=== PATIENT | male | born 1980 | race African-American/Black ===

== ENCOUNTER 2016-10-28 21:09 | Emergency (ER) | payer BC ==
[2016-10-28 21:22] VITALS: BP 121/80
[2016-10-28] MEDS ORDERED: BACITRACIN OINT TOP STA (21:42)
[2016-10-28] MEDS ORDERED: HYDROcod/ACET 5/325 Prepack 6 PO STA (21:42)
[2016-10-28] MEDS ORDERED: BACITRACIN OINT TOP ONE (21:44)
[2016-10-28] MEDS ORDERED: HYDROcod/ACET 5/325 Prepack 6 PO ONE (21:44)
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
== END 2016-10-28 21:56 | disposition home or self-care (01) ==
LOC: ED 21:09
DX: T23.322A Burn of third degree of single left finger (nail) except thumb, initial encounter (principal); X15.8XXA Contact with other hot household appliances, initial encounter; Y92.009 Unspecified place in unspecified non-institutional (private) residence as the place of occurrence of the external cause
CPT/HCPCS: 64450; 99282; 99283; A9270

== ENCOUNTER 2017-04-16 09:51 | Emergency (ER) | payer BC, MEDICAID ==
[2017-04-16 10:09] VITALS: BP 120/81
--- NOTE | 2017-04-16 12:34 | ED Physician Documentation ---
PD HPI HEENT - Stated complaint Stated Complaint: TOOTH/FACE PX - Chief complaint Chief Complaint: Heent - History obtained from History obtained from: Patient - History of Present Illness Timing - onset: Yesterday (had tooth crack yesterday and is hurting today. Tried to get into dentist but no appts for couple weeks.) Timing - details: Abrupt onset, Still present Location: Tooth (left upper) Associated symptoms: No: Fever, Congestion, Rhinorrhea, Facial swelling Similar symptoms before: Has not had sx before Review of Systems Constitutional: denies: Fever, Chills Throat: reports: Dental pain / toothache. denies: Sore throat Respiratory: denies: Dyspnea, Cough PD PAST MEDICAL HISTORY - Past Medical History Past Medical History: No - Past Surgical History Past Surgical History: Yes - Present Medications Home Medications: Ambulatory Orders Medication Instructions Recorded Confirmed Clindamycin HCl [Cleocin HCl] 300 mg PO TID #15 capsule 04/16/17 HYDROcod/ACETAM 5/325 [[place] 5/325] 1 tab PO Q6H PRN #20 tablet 04/16/17 Naproxen [Naprosyn] 500 mg PO BID PRN #20 tablet 04/16/17 - Allergies Allergies/Adverse Reactions: Allergies Allergy/AdvReac Type Severity Reaction Status Date / Time No Known Drug Allergies Allergy Verified 04/16/17 10:09 - Social History Does the pt smoke?: No Smoking Status: Never smoker Does the pt drink ETOH?: No Does the pt have substance abuse?: No - Immunizations Immunizations are current?: Yes - POLST Patient has POLST: No PD ED PE NORMAL - Vitals Vital signs reviewed: Yes - General General: Alert and oriented X 3, No acute distress, Well developed/nourished - HEENT HEENT: Ears normal, Pharynx benign. No: Dentition benign (left upper tooth with fracture and back portion missing (not amenable to temp filling). No noted redness nor swelling. ) - Neck Neck: Supple, no meningeal sign, No adenopathy - Cardiac Cardiac: RRR, No murmur - Respiratory Respiratory: Clear bilaterally Results - Vitals Vitals: Oxygen O2 Source Room air Procedures - Regional nerve block Nerve block site: Infraorbital Right / left: Left Nerve block anesthesia: Marcaine 0.5% Nerve block aftercare: Excellent anesthesia, No complications PD MEDICAL DECISION MAKING - ED course Complexity details: considered differential, d/w patient Departure - Departure Disposition: 01 Home, Self Care Clinical Impression: Cracked tooth, Tooth pain Condition: Stable Record reviewed to determine appropriate education?: Yes Instructions: ED Tooth Pain [facility]-Up: [facility] [Provider Group] Prescriptions: Clindamycin HCl [Cleocin HCl] 300 mg PO TID #15 capsule HYDROcod/ACETAM 5/325 [[place] 5/325] 1 tab PO Q6H PRN #20 tablet PRN Reason: Pain Naproxen [Naprosyn] 500 mg PO BID PRN #20 tablet PRN Reason: Pain Comments: Anti-inflammatory naproxen twice daily for the next 7-10 days. Add Tylenol or hydrocodone if needed for pain. Clindamycin 3 times a day for the next several days for concern of potential infection. Follow-up with dentist ([facility] ) as soon as they have an appointment. You can use local numbing medicine such as oil of clove or Orajel which are available at the store. Discharge Date/Time: 04/16/17 13:01
[2017-04-16] MEDS ORDERED: HYDROcod/ACETAM 5/325 MG TABLET PO STA (12:41)
[2017-04-16] MEDS ORDERED: CLINDAMYCIN 150 MG CAPSULE PO STA (12:41)
[2017-04-16] MEDS ORDERED: IBUPROFEN 600 MG TABLET PO STA (12:41)
[2017-04-16] MEDS ORDERED: CLINDAMYCIN 150 MG CAPSULE PO ONE (12:50)
[2017-04-16] MEDS ORDERED: IBUPROFEN 600 MG TABLET PO ONE (12:51)
[2017-04-16] MEDS ORDERED: HYDROcod/ACETAM 5/325 MG TABLET ONE (12:51)
== END 2017-04-16 13:01 | disposition home or self-care (01) ==
LOC: ED 09:51
DX: K03.81 Cracked tooth (principal); K08.89 Other specified disorders of teeth and supporting structures
CPT/HCPCS: 64400; 99283; A9270

== ENCOUNTER 2017-06-19 16:48 | Emergency (ER) | payer BC, OTHER ==
[2017-06-19 16:57] VITALS: BP 141/63
[2017-06-19] MEDS ORDERED: oxyCOD/ACETAMIN 5 MG/325 MG TABLET PO STA (18:31)
[2017-06-19] MEDS ORDERED: IBUPROFEN 400 MG TABLET PO STA (18:31)
[2017-06-19] MEDS ORDERED: AMOXICILLIN 250 MG CAPSULE PO STA (18:31)
--- NOTE | 2017-06-19 18:34 | ED Physician Documentation ---
History of Present Illness - Stated complaint Stated Complaint: TOOTH PX - Chief complaint Chief Complaint: Heent - Additonal information Additional information: hx from pt healthy 37 male broken upper left 2nd molar acutely painful today dentist cant see for weeks no fever Review of Systems Constitutional: denies: Fever Throat: reports: Dental pain / toothache PD PAST MEDICAL HISTORY - Past Medical History Past Medical History: No - Past Surgical History Past Surgical History: Yes - Present Medications Home Medications: Ambulatory Orders Medication Instructions Recorded Confirmed Amoxicillin 500 mg PO Q8H #21 capsule 06/19/17 Ibuprofen [Motrin] 800 mg PO Q8H PRN #30 tablet 06/19/17 Oxycodone HCl/Acetaminophen 1 each PO Q6HR PRN #4 tablet 06/19/17 [Percocet 5-325 mg Tablet] - Allergies Allergies/Adverse Reactions: Allergies Allergy/AdvReac Type Severity Reaction Status Date / Time No Known Drug Allergies Allergy Verified 06/19/17 16:57 - Social History Does the pt smoke?: No Smoking Status: Never smoker Does the pt drink ETOH?: No Does the pt have substance abuse?: No - Immunizations Immunizations are current?: Yes - POLST Patient has POLST: No PD ED PE NORMAL - Vitals Vital signs reviewed: Yes - HEENT HEENT: Other (no trismus, upper l 2nd molar prior filling, decayed to gum posterior very TTP, no visible abscess to drain) - Cardiac Cardiac: RRR - Respiratory Respiratory: No respiratory distress, Clear bilaterally Results - Vitals Vitals: Vital Signs - 24 hr 06/19/17 16:54 Temperature 37.1 C Heart Rate 75 Respiratory 18 Rate Blood Pressure 141/63 H O2 Saturation 100 Oxygen O2 Source Room air Departure - Departure Disposition: 01 Home, Self Care Clinical Impression: Dental infection Condition: Good Instructions: ED Abscess Tooth Prescriptions: Oxycodone HCl/Acetaminophen [Percocet 5-325 mg Tablet] 1 each PO Q6HR PRN #4 tablet PRN Reason: Severe Pain Amoxicillin 500 mg PO Q8H #21 capsule Ibuprofen [Motrin] 800 mg PO Q8H PRN #30 tablet PRN Reason: Pain Comments: I wrote for 4 percocet to help with the pain until the antibiotic starts to work After that motrin should be fine Follow up with your dentist when able Return if worse
== END 2017-06-19 18:47 | disposition home or self-care (01) ==
LOC: ED 16:48
DX: K04.7 Periapical abscess without sinus (principal)
CPT/HCPCS: 99283; A9270

== ENCOUNTER 2017-09-14 15:01 | Emergency (ER) | payer MEDICAID, OTHER ==
[2017-09-14 15:11] VITALS: BP 111/73
[2017-09-14] MEDS ORDERED: ACETAMINOPHEN 325 MG TABLET PO STA (16:09)
[2017-09-14] MEDS ORDERED: guaiFENesin/DEXTROMETHORPHAN 10 ML UDC PO STA (16:09)
[2017-09-14] MEDS ORDERED: IBUPROFEN 400 MG TABLET PO STA (16:09)
[2017-09-14] MEDS ORDERED: BENZONATATE 100 MG CAPSULE PO STA (16:09)
--- NOTE | 2017-09-14 16:12 | ED Physician Documentation ---
History of Present Illness - Stated complaint Stated Complaint: COUGH/CHILLS/BACK PX - Chief complaint Chief Complaint: Resp - Additonal information Additional information: hx from pt 37 male subg fever chills sweat myalgias PEÑA cough sore throat diarrhea since yesterday no travel no sick contacts Review of Systems Constitutional: reports: Fever, Chills, Myalgias, Sweats Throat: reports: Sore throat (from cough) Respiratory: reports: Cough GI: reports: Diarrhea. denies: Vomiting Neurologic: reports: Headache (last night not now) Immunocompromised: denies: Immunocompromised PD PAST MEDICAL HISTORY - Past Medical History Past Medical History: No - Past Surgical History Past Surgical History: Yes - Present Medications Home Medications: Ambulatory Orders Medication Instructions Recorded Confirmed Azithromycin [Zithromax] 250 mg PO DAILY #6 tablet 09/14/17 Benzonatate [Tessalon] 100 mg PO TID PRN #20 capsule 09/14/17 Oseltamivir [Tamiflu] 75 mg PO BID #9 capsule 09/14/17 guaiFENesin/DEXTROMETHORPHAN 10 ml PO Q6H PRN #120 ml 09/14/17 [Robitussin Dm] - Allergies Allergies/Adverse Reactions: Allergies Allergy/AdvReac Type Severity Reaction Status Date / Time No Known Drug Allergies Allergy Verified 09/14/17 15:11 - Social History Does the pt smoke?: No Smoking Status: Never smoker Does the pt drink ETOH?: No Does the pt have substance abuse?: No - Immunizations Immunizations are current?: Yes - POLST Patient has POLST: No PD ED PE NORMAL - Vitals Vital signs reviewed: Yes - General General: Alert and oriented X 3 - HEENT HEENT: PERRL, Ears normal, Moist mucous membranes, Pharynx benign - Neck Neck: Supple, no meningeal sign - Cardiac Cardiac: RRR - Respiratory Respiratory: Other (ronchi L base) - Abdomen Abdomen: Soft, Non tender - Derm Derm: Normal color - Neuro Neuro: Alert and oriented X 3 Results - Vitals Vitals: Vital Signs - 24 hr 09/14/17 15:08 Temperature 37.6 C H Heart Rate 80 Respiratory 16 Rate Blood Pressure 111/73 O2 Saturation 96 Oxygen O2 Source Room air - Labs Labs: Laboratory Tests 09/14/17 16:05 Influenza A (Rapid) Negative Influenza B (Rapid) POSITIVE H PD MEDICAL DECISION MAKING - ED course ED course: + LLL infiltrate and also + influenza B he is only 37 and otherwise healthy but pna on CXR will tx with tamiflu given secondary pna will also rx zmax Departure - Departure Disposition: 01 Home, Self Care Clinical Impression: Influenza B Pneumonia Qualifiers: Pneumonia type: due to unspecified organism Laterality: left Lung location: lower lobe of lung Qualified Code(s): J18.1 - Lobar pneumonia, unspecified organism Condition: Good Instructions: ED Flu, Medication: Tamiflu (Oseltamivir), ED Pneumonia Adult Prescriptions: Azithromycin [Zithromax] 250 mg PO DAILY #6 tablet Benzonatate [Tessalon] 100 mg PO TID PRN #20 capsule PRN Reason: to ease cough guaiFENesin/DEXTROMETHORPHAN [Robitussin Dm] 10 ml PO Q6H PRN #120 ml PRN Reason: Cough Oseltamivir [Tamiflu] 75 mg PO BID #9 capsule Comments: You have influenza B And also a pneumonia on chest xray The pneumonia could be due to the the influenza virus But it could also be a bacterial pneumonia that set in due to the influenza weakening your immune system. So I have prescribed both tamiflu (an antiviral) and zithromax (an antibacterial ) The tamiflu just helps lessen the severity and duration of the flu symptoms - some people experience adverse side effects such and GI upset or severe symptoms such as hallucinations and depression - if you develop any side effect , just stop the tamiflu The zithromax you should take for the full 5 days Rest and drink plenty of fluids Motrin and tylenol for the fever Off work for the next three days Follow up with your PMD for a recheck Sunday Return to the ER if worse over the weekend Forms: Activity restrictions
--- NOTE | 2017-09-14 16:19 | XRAY Report ---
EXAM: CHEST RADIOGRAPHY EXAM DATE: 09/14/2017 04:00 PM. CLINICAL HISTORY: Cough and fever. COMPARISON: None. TECHNIQUE: 2 views. FINDINGS: Lungs/Pleura: Left infrahilar haziness, otherwise no focal opacities evident. No pleural effusion. No pneumothorax. Normal volumes. Mediastinum: Heart and mediastinal contours are unremarkable. Other: No bony abnormality identified. IMPRESSION: Left infrahilar haziness concerning for lower lobe infiltrate. [facility] Referring Provider Line: [phone] SITE ID: [id number]
[2017-09-14] MEDS ORDERED: OSELTAMIVIR 75 MG CAPSULE PO STA (16:51)
== END 2017-09-14 17:05 | disposition home or self-care (01) ==
LOC: ED 15:01
DX: J10.1 Influenza due to other identified influenza virus with other respiratory manifestations (principal)
CPT/HCPCS: 71046; 87275; 87276; 99283; A9270

== ENCOUNTER 2021-01-24 11:12 | Emergency (ER) | payer SELFPAY ==
[2021-01-24 12:07] LABS: BASOPHILS % (AUTO) 0.2 %; EOSINOPHILS # (AUTO) 0.1 10^3/uL (0.0-0.7); EOSINOPHILS % (AUTO) 0.8 %; HCT - HEMATOCRIT 45.9 % (42.0-52.0); HGB - HEMOGLOBIN 15.2 g/dL (14.0-18.0); LYMPHOCYTES # (AUTO) 1.4 10^3/uL (1.5-3.5); LYMPHOCYTES % (AUTO) 15.1 %; MEAN CORPUSCULAR HGB CONC 33.1 g/dL (32.0-36.0); MEAN CORPUSCULAR VOLUME 93.5 fL (80.0-94.0); MEAN PLATELET VOLUME 9.8 fL (7.4-11.4); MONOCYTES # (AUTO) 1.2 10^3/uL (0.0-1.0); MONOCYTES % (AUTO) 13.1 %; NEUTROPHILS # (AUTO) 6.5 10^3/uL (1.5-6.6); NEUTROPHILS % (AUTO) 70.7 %; PLT - PLATELET COUNT 275 10^3/uL (130-450); RED BLOOD COUNT 4.91 10^6/uL (4.70-6.10); RED CELL DISTRIBUTION WIDTH 12.4 % (12.0-15.0); WHITE BLOOD COUNT 9.2 x10^3/uL (4.8-10.8)
[2021-01-24 12:19] LABS: ALBUMIN 4.1 g/dL (3.2-5.5); ALBUMIN/GLOBULIN RATIO 1.2 (1.0-2.2); BILIRUBIN,TOTAL 0.8 mg/dL (0.2-1.0); CALCIUM 8.9 mg/dL (8.5-10.3); CREATININE 0.7 mg/dL (0.6-1.2); POTASSIUM 4.1 mmol/L (3.5-5.0); TOTAL PROTEIN 7.5 g/dL (6.7-8.2)
[2021-01-24 13:05] VITALS: BP 143/83
[2021-01-24] MEDS ORDERED: LIDOCAINE VISCOUS 2% 15 ML UDC MM STA (13:17)
[2021-01-24] MEDS ORDERED: SUCRALFATE 1 GM/10 ML UDC PO STA (13:17)
[2021-01-24] MEDS ORDERED: MAG HYDROX/AL HYDROX/SIMETH 30 ML UDC PO STA (13:17)
[2021-01-24] MEDS ORDERED: FAMOTIDINE 20 MG TABLET PO STA (13:17)
--- NOTE | 2021-01-24 13:21 | ED Physician Documentation ---
PD HPI ABD PAIN - Stated complaint Stated Complaint: ABD PX - Chief complaint Chief Complaint: Abd Pain - History obtained from History obtained from: Patient - History of Present Illness Timing - onset: How many days ago (several days.) Timing - details: Gradual onset, Constant Pain level max: 0 Pain level now: 0 Quality: Aching, Pain Location: Epigastric Radiation: No: Chest, , Lower back, Left flank, Left shoulder, Right flank, Right shoulder, Upper back Associated symptoms: Nausea. No: Fever, Vomiting, Hematemesis, Diarrhea, Constipation, Melena - Additional information Additional information: Patient is a 41-year-old male who presents to the emergency department with epigastric abdominal pain for the past several days, worse with eating and drinking. Nothing makes it better. He states he also has sores on his lower lip and tongue. Worse with eating and drinking as well. Review of Systems Ten Systems: 10 systems reviewed and negative Constitutional: denies: Fever, Chills GI: denies: Vomiting Skin: denies: Rash Musculoskeletal: denies: Neck pain, Back pain Neurologic: denies: Headache PD PAST MEDICAL HISTORY - Past Medical History Past Medical History: No - Past Surgical History Past Surgical History: Yes - Present Medications Home Medications: Ambulatory Orders Medication Instructions Recorded Confirmed Azithromycin [Zithromax] 250 mg PO DAILY #6 tablet 09/14/17 Benzonatate [Tessalon] 100 mg PO TID PRN #20 capsule 09/14/17 Oseltamivir [Tamiflu] 75 mg PO BID #9 capsule 09/14/17 guaiFENesin/DEXTROMETHORPHAN 10 ml PO Q6H PRN #120 ml 09/14/17 [Robitussin Dm] Esomeprazole Magnesium [Nexium] 40 mg PO DAILY #30 cap 01/24/21 Famotidine [Pepcid] 20 mg PO BID #60 tablet 01/24/21 Sucralfate [Carafate] 1 gm PO ACHS #60 tablet 01/24/21 Valacyclovir HCl [Valtrex] 2,000 mg PO BID #4 tablet 01/24/21 - Allergies Allergies/Adverse Reactions: Allergies Allergy/AdvReac Type Severity Reaction Status Date / Time No Known Drug Allergies Allergy Verified 01/24/21 11:46 - Living Situation Living Arrangement: reports: At home - Social History Does the pt smoke?: No Smoking Status: Never smoker Does the pt drink ETOH?: No Does the pt have substance abuse?: No - Family History Family history: reports: Non contributory - Immunizations Immunizations are current?: Yes - POLST Patient has POLST: No PD ED PE NORMAL - Vitals Vital signs reviewed: Yes - General General: Alert and oriented X 3, Well developed/nourished, Other (Appears uncomfortable) - HEENT HEENT: PERRL, Moist mucous membranes, Other (Small ulceration to the tip of the tongue, few small ulcerations on the inner lower lip as well.) - Neck Neck: Supple, no meningeal sign - Cardiac Cardiac: RRR - Respiratory Respiratory: No respiratory distress, Clear bilaterally - Abdomen Abdomen: Soft, Non distended, Other (Tender to palpation epigastric without peritoneal signs) - Back Back: No CVA TTP, No spinal TTP - Derm Derm: Warm and dry, No rash - Extremities Extremities: No edema - Neuro Neuro: Alert and oriented X 3 - Psych Psych: Normal mood, Normal affect Results - Vitals Vitals: Vital Signs - 24 hr 01/24/21 01/24/21 11:45 13:05 Temperature 36.1 C L 36.8 C Heart Rate 110 H 98 Respiratory 16 20 Rate Blood Pressure 132/84 H 143/83 H O2 Saturation 100 100 Oxygen O2 Source Room air - Labs Labs: Laboratory Tests 01/24/21 01/24/21 12:02 12:02 WBC 9.2 RBC 4.91 Hgb 15.2 Hct 45.9 MCV 93.5 MCH 31.0 MCHC 33.1 RDW 12.4 Plt Count 275 MPV 9.8 Neut # (Auto) 6.5 Lymph # (Auto) 1.4 L [place] # (Auto) 1.2 H Eos # (Auto) 0.1 Baso # (Auto) 0.0 Absolute Nucleated RBC 0.00 Nucleated RBC % 0.0 Sodium 135 Potassium 4.1 Chloride 100 L Carbon Dioxide 23 Anion Gap 12.0 BUN 11 Creatinine 0.7 Estimated GFR (MDRD) 152 Glucose 91 Calcium 8.9 Total Bilirubin 0.8 AST 28 ALT 53 Alkaline Phosphatase 148 H Total Protein 7.5 Albumin 4.1 Globulin 3.4 Albumin/Globulin Ratio 1.2 Lipase 23 PD MEDICAL DECISION MAKING - ED course Complexity details: reviewed results, re-evaluated patient, considered different ial, d/w patient ED course: Symptoms resolved with GI cocktail. Likely gastritis versus ulcer. Will place on medication for home. Patient is well-appearing, nontoxic. Afebrile. Appears to have cold sores on the tongue and inner lip as well. Will give Valtrex for home. Patient will follow up with a general surgeon locally for an EGD. Patient counseled regarding signs and symptoms for which I believe and urgent re-evaluation would be necessary. Patient with good understanding of and agreement to plan and is comfortable going home at this time This document was made in part using voice recognition software. While efforts are made to proofread this document, sound alike and grammatical errors may occur. Departure - Departure Disposition: Home, Self Care Clinical Impression: Cold sore Gastritis Qualifiers: Gastritis type: unspecified gastritis Chronicity: acute Gastritis bleeding: without bleeding Qualified Code(s): K29.00 - Acute gastritis without bleeding Condition: Good Instructions: ED PUD Vs Gastritis Follow-Up: Pola Smith MD [Provider Admit Priv/Credential] - Within 1 week Prescriptions: Sucralfate [Carafate] 1 gm PO ACHS #60 tablet Esomeprazole Magnesium [Nexium] 40 mg PO DAILY #30 cap Famotidine [Pepcid] 20 mg PO BID #60 tablet Valacyclovir HCl [Valtrex] 2,000 mg PO BID #4 tablet Comments: Your prescriptions were sent to [facility] in [place]. Please follow a very bland diet. Follow-up with Dr. Smith for an endoscopy to evaluate your stomach. It sounds as if you have gastritis versus an ulcer today. Return if you worsen. The Valtrex should help with the cold sores in your mouth. Discharge Date/Time: 01/24/21 14:15
== END 2021-01-24 14:15 | disposition home or self-care (01) ==
LOC: ED 11:12
DX: K29.70 Gastritis, unspecified, without bleeding (principal); B00.1 Herpesviral vesicular dermatitis
CPT/HCPCS: 36415; 80053; 83690; 85025; 99283; 99284; A9270

== ENCOUNTER 2022-10-02 04:29 | Emergency (ER) | payer SELFPAY ==
[2022-10-02 04:46] VITALS: BP 145/83
[2022-10-02] MEDS ORDERED: LIDOCAINE/PRILOCAINE 2.5% CREAM 5 GM TUBE TOP STA (04:51)
--- NOTE | 2022-10-02 04:55 | ED Physician Documentation ---
History of Present Illness - Stated complaint Stated Complaint: RT SHOULDER SPIDER BITE - Chief complaint Chief Complaint: General - History obtained from History obtained from: Patient - Additonal information Additional information: Is a 42-year-old male presenting for evaluation of redness and swelling to his upper back that has been worsening over the past 3 days. Patient is concerned it could be from a spider bite. He states he does have a history of abscesses and has required drainage in the past. No fevers.Denies that he is diabetic. Review of Systems Constitutional: denies: Fever Cardiac: denies: Chest pain / pressure Respiratory: denies: Dyspnea GI: denies: Abdominal Pain Skin: reports: Other (Abscess) PD PAST MEDICAL HISTORY - Past Surgical History Past Surgical History: Yes - Present Medications Home Medications: Ambulatory Orders Medication Instructions Recorded Confirmed Azithromycin [Zithromax] 250 mg PO DAILY #6 tablet 09/14/17 Benzonatate [Tessalon] 100 mg PO TID PRN #20 capsule 09/14/17 Oseltamivir [Tamiflu] 75 mg PO BID #9 capsule 09/14/17 guaiFENesin/DEXTROMETHORPHAN 10 ml PO Q6H PRN #120 ml 09/14/17 [Robitussin Dm] Esomeprazole Magnesium [Nexium] 40 mg PO DAILY #30 cap 01/24/21 Famotidine [Pepcid] 20 mg PO BID #60 tablet 01/24/21 Sucralfate [Carafate] 1 gm PO ACHS #60 tablet 01/24/21 Valacyclovir HCl [Valtrex] 2,000 mg PO BID #4 tablet 01/24/21 Sulfamethox/Trimeth 800/160 1 each PO BID #14 tablet 10/02/22 [Bactrim Ds 800/160] cephALEXin [Keflex] 500 mg PO Q6H #28 cap 10/02/22 - Allergies Allergies/Adverse Reactions: Allergies Allergy/AdvReac Type Severity Reaction Status Date / Time No Known Drug Allergies Allergy Verified 10/02/22 04:46 - Social History Does the pt smoke?: No Smoking Status: Never smoker Does the pt drink ETOH?: No Does the pt have substance abuse?: No - Immunizations Immunizations are current?: Yes - POLST Patient has POLST: No PD ED PE NORMAL - General General: Alert and oriented X 3, No acute distress, Well developed/nourished - HEENT HEENT: Atraumatic - Cardiac Cardiac: No murmur, Strong equal pulses, Other (Tachycardic, regular rhythm) - Respiratory Respiratory: No respiratory distress - Back Back: Other (Large area of fluctuance and erythema to mid upper back; erythema extends past area of fluctuance) Results - Vitals Vitals: Vital Signs - 24 hr 10/02/22 10/02/22 04:43 06:28 Temperature 36.3 C L Heart Rate 112 H 88 Blood Pressure 145/83 H O2 Saturation 100 95 Oxygen O2 Source Room air - Labs Labs: Microbiology 10/02/22 05:30 Wound Culture - Preliminary Abscess Procedures - Abscess I&D (location) Upper back Preparation: Betadine, Other (EMLA) Incision: Incised with scalpel, Purulent drainage, Loculations broken, Irrigated, Culture obtained Other: Pt tolerated well, Dressing applied, Antibiotic prescribed PD Medical Decision Making - ED course ED course: Pt with abscess to back. Pt does not appear septic. Pt gave verbal consent for I&D. Culture sent. Given that erythema extends past area of fluctuance, will also treat for cellulitis. Pt advised on strict return precautions for worsening symptoms. Departure - Departure Disposition: 01 Home, Self Care Clinical Impression: Back abscess, Cellulitis Condition: Stable Instructions: ED Abscess IandD, ED Infec Skin Cellulitis Prescriptions: Sulfamethox/Trimeth 800/160 [Bactrim Ds 800/160] 1 each PO BID #14 tablet cephALEXin [Keflex] 500 mg PO Q6H #28 cap Comments: You have an abscess to your back that was opened and drained. I have sent a wound culture But we will also start you on 2 antibiotics. If for some reason you need a different antibiotic we will notify you.I have given you a small amount of narcotic pain medication today to help with any discomfort.I would expect the wound to continue to drain over the next several days.I would use warm compresses or moist heat over the abscess To help encourage it to continue to drain. If you have any worsening symptoms please return to the emergency department. I sent your prescriptions to [facility] in [place]. I am prescribing a short course of narcotic pain medication for you. These are potentially dangerous and addictive medications that should be used carefully. These medications may constipate you. Take an ceqj-xsr-dzvrzxc stool softener (docusate) twice daily with plenty of water while taking these medications. If you go 24 hours without a bowel movement, take txor-hwv-qwirrib miralax, per package instructions. Do not drink or drive while taking these medications. If you received narcotic or sedating medications while in the emergency department, do not drive for 24 hours. Store this medication in a safe, secure place and out of reach of children. It is a violation of federal law to give or sell this medication to another person or to use in a manner other than prescribed. The ED will not refill narcotic prescriptions, including prescriptions lost or stolen. To dispose of unwanted medications: 1. [facility] [address] [facility] in [place] has a medication drop box. They accept prescription medications (in pill form) Sunday through Sunday 9:00 a.m. to 5:00 p.m. 2. The [facility] accepts prescription medications (in pill form only) for disposal year round. Call for more information. 3. Contact the [facility] for the next [facility] sponsored prescription drug collection event. , [phone], or [phone]; Note that many narcotic pain relievers also contain Tylenol/acetaminophen. Please ensure that your total dose of acetaminophen from all sources does not exceed 3 g (3000 mg) per day. Discharge Date/Time: 10/02/22 06:30
[2022-10-02] MEDS ORDERED: lidocaine 1% 20 ML MDV SUBQ ONE (05:32)
[2022-10-02] MEDS ORDERED: HYDROmorphone 1 MG/ML CARPUJECT IM STA (05:37)
[2022-10-02] MEDS ORDERED: oxyCODONE/ACET 5/325 Prepack 4 PO STA (06:08)
[2022-10-02] MEDS ORDERED: SULFAMETH/TRIMETH DS 800/160 MG TABLET PO STA (06:09)
[2022-10-02] MEDS ORDERED: cephALEXin 250 MG CAPSULE PO STA (06:09)
--- NOTE | 2022-10-04 11:43 | ED Physician Documentation ---
ED Addendum - Addendum Addendum: 10/04/22 11:42 The patient's wound culture is positive for MRSA. It is resistant to Bactrim. Will change to doxycycline. Departure - Departure Disposition: 01 Home, Self Care Clinical Impression: Back abscess, Cellulitis Condition: Stable Instructions: ED Abscess IandD, ED Infec Skin Cellulitis Prescriptions: Sulfamethox/Trimeth 800/160 [Bactrim Ds 800/160] 1 each PO BID #14 tablet Doxycycline Monohydrate 100 mg PO BID #20 cap cephALEXin [Keflex] 500 mg PO Q6H #28 cap Comments: You have an abscess to your back that was opened and drained. I have sent a wound culture But we will also start you on 2 antibiotics. If for some reason you need a different antibiotic we will notify you.I have given you a small amount of narcotic pain medication today to help with any discomfort.I would expect the wound to continue to drain over the next several days.I would use warm compresses or moist heat over the abscess To help encourage it to continue to drain. If you have any worsening symptoms please return to the emergency department. I sent your prescriptions to [facility] in [place]. I am prescribing a short course of narcotic pain medication for you. These are potentially dangerous and addictive medications that should be used carefully. These medications may constipate you. Take an czut-dqm-ajrtqwo stool softener (docusate) twice daily with plenty of water while taking these medications. If you go 24 hours without a bowel movement, take wqnu-vmj-nsysfep miralax, per package instructions. Do not drink or drive while taking these medications. If you received narcotic or sedating medications while in the emergency department, do not drive for 24 hours. Store this medication in a safe, secure place and out of reach of children. It is a violation of federal law to give or sell this medication to another person or to use in a manner other than prescribed. The ED will not refill narcotic prescriptions, including prescriptions lost or stolen. To dispose of unwanted medications: 1. [facility] [address] in [place] has a medication drop box. They accept prescription medications (in pill form) Sunday through Sunday 9:00 a.m. to 5:00 p.m. 2. The [facility] accepts prescription medications (in pill form only) for disposal year round. Call for more information. 3. Contact the [facility] for the next [facility] sponsored prescription drug collection event. , [phone], or [phone]; Note that many narcotic pain relievers also contain Tylenol/acetaminophen. Please ensure that your total dose of acetaminophen from all sources does not exceed 3 g (3000 mg) per day. Discharge Date/Time: 10/02/22 06:30
== END 2022-10-02 06:30 | disposition home or self-care (01) ==
LOC: ED 04:29
DX: L03.312 Cellulitis of back [any part except buttock and flank] (principal); A49.02 Methicillin resistant Staphylococcus aureus infection, unspecified site
CPT/HCPCS: 10060; 87070; 87181; 87205; 96372; 99283; A9270; J1170; J3490

== ENCOUNTER 2023-10-13 18:13 | Emergency (ER) | payer MEDICAID, OTHER ==
--- NOTE | 2023-10-13 18:21 | ED Physician Documentation ---
<Kiana Puri - Last Filed: 10/13/23 21:33> PD HPI HEADACHE - Stated complaint Stated Complaint: HEADACHE/DIAPHORETIC - Chief complaint Chief Complaint: Neuro PD PAST MEDICAL HISTORY - Present Medications Home Medications: Ambulatory Orders Medication Instructions Recorded Confirmed Omeprazole 1 tab PO DAILY 10/13/23 10/13/23 Pantoprazole [Protonix] 40 mg PO DAILY 30 Days #30 tablet 10/13/23 Sucralfate [Carafate] 1 gm PO BID 10 Days #200 ml 10/13/23 - Allergies Allergies/Adverse Reactions: Allergies Allergy/AdvReac Type Severity Reaction Status Date / Time No Known Drug Allergies Allergy Verified 10/13/23 18:16 Departure - Departure Disposition: 01 Home, Self Care Clinical Impression: Headache, acute, Raynauds syndrome, Hypomagnesemia, Anemia, GERD with esophagitis Condition: Stable Instructions: Anemia, Hypomagnesemia Dc Prescriptions: Sucralfate [Carafate] 1 gm PO BID 10 Days #200 ml Pantoprazole [Protonix] 40 mg PO DAILY 30 Days #30 tablet Comments: You were seen in the emergency department for evaluation of severe headache. Glad you are feeling better! Your head CT was normal. You do have new anemia (low red blood cell levels) on labwork as well as slightly low magnesium. Please take over the counter multivitamin supplements containing magnesium and have this investigated further by your primary care provider. Please follow-up with a primary care provider (referral provided) and return to the emergency department if you have any new or worsening symptoms or other concerns. Forms: PCP List Discharge Date/Time: 10/13/23 22:03 <Pola Vu - Last Filed: 10/13/23 22:20> PD HPI HEADACHE - History obtained from History obtained from: Patient - History of Present Illness Timing - onset: How many hours ago (1-2), Today Timing - onset during: Light activity Timing - duration: Hours Timing - details: Abrupt onset, Still present Worst headache ever?: Worst headache ever? Location: Front, Right, Left Quality: Stabbing, Tightness Associated symptoms: Nausea. No: Fever, Stiff neck, Vomiting, Weakness, Vision changes Improved by: No: Rest Worsened by: No: Light, Noise Contributing factors: No: Hypertension, Recent illness, Trauma Similar symptoms before: Has not had sx before Review of Systems Constitutional: denies: Fever, Myalgias GI: reports: Abdominal Pain (regularly alia in night when flat, due to reflux. Has been on omeprazole long time, not working well recently.) Musculoskeletal: reports: Other (Also today had onset of very white-colored pale blanched fingers when in the shower and when out then turned very blue. It has happened at times in the past with showers or sometimes outdoors but also randomly. Today was most prominent compared to others.) PD PAST MEDICAL HISTORY - Past Medical History Past Medical History: Yes Cardiovascular: None Neuro: None, Other (no history of migraines.) Endocrine/Autoimmune: None GI: GERD - Past Surgical History Past Surgical History: Yes - Social History Does the pt smoke?: Yes Smoking Status: Current every day smoker Does the pt drink ETOH?: No Does the pt have substance abuse?: No - Immunizations Immunizations are current?: Yes - POLST Patient has POLST: No PD ED PE NORMAL - Vitals Vital signs reviewed: Yes - General General: Alert and oriented X 3, Well developed/nourished, Other (appears very uncomfortable due to headache. Oriented and conversant. Neck supple. ) - HEENT HEENT: Atraumatic - Neck Neck: Supple, no meningeal sign, No bony TTP, No adenopathy - Cardiac Cardiac: RRR, No murmur - Respiratory Respiratory: No respiratory distress, Clear bilaterally - Abdomen Abdomen: Soft, Non tender - Derm Derm: Normal color, Warm and dry - Extremities Extremities: No edema, No calf tenderness / cord, Other (fingers with color and cap refill normal at this time. 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, No motor deficit, No sensory deficit, Normal speech Results - Vitals Vitals: Vital Signs - 24 hr 10/13/23 10/13/23 10/13/23 18:16 19:36 20:32 Temperature 36.8 C Heart Rate 110 H 98 78 Respiratory 22 16 16 Rate Blood Pressure 179/90 H 152/89 H 137/81 H O2 Saturation 100 100 100 Oxygen O2 Source Room air - Labs Labs: Laboratory Tests 10/13/23 10/13/23 10/13/23 19:05 19:26 19:26 WBC 9.9 RBC 5.24 Hgb 10.9 L Hct 37.7 L MCV 71.9 L MCH 20.8 L MCHC 28.9 L RDW 15.9 H Plt Count 396 MPV 10.1 Neut # (Auto) 6.8 H Lymph # (Auto) 2.0 Kimble # (Auto) 0.8 Eos # (Auto) 0.2 Baso # (Auto) 0.0 Absolute Nucleated RBC 0.00 Nucleated RBC % 0.0 Manual Slide Review Indicated Platelet Estimate NORMAL (130-450,000) Platelet Morphology NORMAL APPEARANCE RBC Morph Micro Appear 1+ HYPOCHROMASIA Sodium 136 Potassium 3.6 Chloride 106 Carbon Dioxide 25 Anion Gap 5.0 L BUN 8 Creatinine 0.8 Estimated GFR (MDRD) 129 Glucose 108 H Calcium 8.9 Magnesium 1.6 L Total Bilirubin 0.3 AST 13 ALT 18 Alkaline Phosphatase 78 C-Reactive Protein < 0.5 Total Protein 6.4 Albumin 3.9 Globulin 2.5 Albumin/Globulin Ratio 1.6 Lipase 36 Nasal Adenovirus (PCR) NOT DETECTED Nasal B. parapertussis DNA (PCR) NOT DETECTED Nasal Coronavir 229E PCR NOT DETECTED Nasal Coronavir HKU1 PCR NOT DETECTED Nasal Coronavir NL63 PCR NOT DETECTED Nasal Coronavir OC43 PCR NOT DETECTED Nasal Enterovir/Rhinovir PCR NOT DETECTED Nasal Influenza B PCR NOT DETECTED Nasal Influenza A PCR NOT DETECTED Nasal Parainfluen 1 PCR NOT DETECTED Nasal Parainfluen 2 PCR NOT DETECTED Nasal Parainfluen 3 PCR NOT DETECTED Nasal Parainfluen 4 PCR NOT DETECTED Nasal RSV (PCR) NOT DETECTED Nasal B.pertussis DNA PCR NOT DETECTED Nasal C.pneumoniae (PCR) NOT DETECTED Thomas Human Metapneumo PCR NOT DETECTED Nasal M.pneumoniae (PCR) NOT DETECTED Nasal SARS-CoV-2 (PCR) NOT DETECTED PD Medical Decision Making - ED course Complexity details: reviewed results (no acute intracranial pathology.), considered differential (describes Raynaud type process in fingers and has had it before, but milder. Could consider calcium toyin or such. not main issue. Main is abrupt severe headacke without h/o headaches. Can get CT and treat for functional headache meanwhile. ), d/w patient ED course: We did talk about his GED symptoms often before discussing new headache. I was going to change his meds and add carafate at night. Will send to [facility]. I forgot to endorse this at shift change. Departure - Departure Record reviewed to determine appropriate education?: Yes
[2023-10-13 18:25] VITALS: O2SAT 100
[2023-10-13] MEDS: SODIUM CHLORIDE 0.9% 1,000 ML IV STA (19:30)
[2023-10-13 19:31] LABS: BASOPHILS % (AUTO) 0.4 %; EOSINOPHILS # (AUTO) 0.2 10^3/uL (0.0-0.7); EOSINOPHILS % (AUTO) 1.8 %; HCT - HEMATOCRIT 37.7 % (42.0-52.0); HGB - HEMOGLOBIN 10.9 g/dL (14.0-18.0); MEAN CORPUSCULAR HEMOGLOBIN 20.8 pg (27.0-31.0); MEAN CORPUSCULAR HGB CONC 28.9 g/dL (32.0-36.0); MEAN CORPUSCULAR VOLUME 71.9 fL (80.0-94.0); MEAN PLATELET VOLUME 10.1 fL (7.4-11.4); MONOCYTES # (AUTO) 0.8 10^3/uL (0.0-1.0); MONOCYTES % (AUTO) 8.3 %; NEUTROPHILS # (AUTO) 6.8 10^3/uL (1.5-6.6); NEUTROPHILS % (AUTO) 69.3 %; PLT - PLATELET COUNT 396 10^3/uL (130-450); RED BLOOD COUNT 5.24 10^6/uL (4.70-6.10); RED CELL DISTRIBUTION WIDTH 15.9 % (12.0-15.0); WHITE BLOOD COUNT 9.9 x10^3/uL (4.8-10.8)
[2023-10-13] MEDS: KETOROLAC 15 MG/ML VIAL IVP STA (19:31)
[2023-10-13] MEDS: PROCHLORPERAZINE 10 MG/2 ML VIAL IVP STA (19:31)
[2023-10-13 19:49] LABS: ALBUMIN 3.9 g/dL (3.2-5.5); ALBUMIN/GLOBULIN RATIO 1.6 (1.0-2.2); ALKALINE PHOSPHATASE 78 IU/L (42-121); ALT ALANINE AMINOTRANSFERASE 18 IU/L (10-60); AST ASPARTATE AMINOTRANSFERASE 13 IU/L (10-42); BILIRUBIN,TOTAL 0.3 mg/dL (0.2-1.0); BUN - BLOOD UREA NITROGEN 8 mg/dL (6-20); CALCIUM 8.9 mg/dL (8.5-10.3); CARBON DIOXIDE - CO2 25 mmol/L (21-32); CHLORIDE 106 mmol/L (101-111); CREATININE 0.8 mg/dL (0.6-1.3); CRP - C-REACTIVE PROTEIN < 0.5 mg/dL (<0.5); GFR - MDRD 129 (>89); GLUCOSE 108 mg/dL (74-104); LIPASE 36 U/L (11-82); MAGNESIUM 1.6 mg/dL (1.7-2.3); POTASSIUM 3.6 mmol/L (3.5-4.5); SODIUM 136 mmol/L (135-145); TOTAL PROTEIN 6.4 g/dL (6.4-8.9)
[2023-10-13 19:50] LABS: PLATELET ESTIMATE, MANUAL NORMAL (130-450,000) (NORMAL); PLATELET MORPHOLOGY NORMAL APPEARANCE (NORMAL); SLIDE REVIEW? Indicated
--- NOTE | 2023-10-13 20:11 | CT Report ---
PROCEDURE: Head WO INDICATIONS: abrupt severe headache TECHNIQUE: Noncontrast 4.5 mm thick angled axial sections acquired from the foramen magnum to the vertex. For r adiation dose reduction, the following was used: automated exposure control, adjustment of mA and/or kV according to patient size. COMPARISON: None. FINDINGS: Image quality: Excellent. CSF spaces: Basal cisterns are patent. No extra-axial fluid collections. Ventricles are normal in size and shape. Brain: No midline shift. No intracranial masses or hemorrhage. Yo-white matter interface is norm al. Skull and face: Calvarium and visualized facial bones are intact, without suspicious lesions. Sinuses: Visualized sinuses and mastoids are clear. IMPRESSION: No cause for patient's symptoms is identified. No acute intracranial pathology. Reviewed by: Jimy Daley MD on 10/13/2023 8:10 PM PDT Approved by: Jimy Daley MD on 10/13/2023 8:10 PM PDT Station ID: [id number]
[2023-10-13 20:12] LABS: B. PARAPERTUSSIS- RESP PCR PAN NOT DETECTED; B. PERTUSSIS- RESP PCR PANEL NOT DETECTED; C. PNEUMONIAE- RESP PCR PANEL NOT DETECTED; CORONAVIRUS 229E-RESP PCR NOT DETECTED; CORONAVIRUS HKU1-RESP PCR NOT DETECTED; CORONAVIRUS NL63-RESP PCR NOT DETECTED; CORONAVIRUS OC43-RESP PCR NOT DETECTED; HUMAN METAPNEUMOVIRUS NOT DETECTED; INFLUENZA A- RESP PCR PANEL NOT DETECTED; INFLUENZA B - RESP PCR PANEL NOT DETECTED; M. PNEUMONIAE- RESP PCR PANEL NOT DETECTED; PARAINFLUENZA VIRUS 1 NOT DETECTED; PARAINFLUENZA VIRUS 2 NOT DETECTED; PARAINFLUENZA VIRUS 3 NOT DETECTED; PARAINFLUENZA VIRUS 4 NOT DETECTED; RHINOVIRUS/ENTEROVIRUS NOT DETECTED; RSV- RESP PCR PANEL NOT DETECTED; SARS-CoV-2 -RESP PCR PANEL NOT DETECTED
[2023-10-13 20:34] VITALS: BP 137/81
[2023-10-13] MEDS: MAGNESIUM SULFATE 2 GRAM 2 GM/50 ML BAG IV ONE (21:42)
--- NOTE | 2023-10-13 21:42 | ED Physician Documentation ---
ED Addendum - Addendum Addendum: 10/13/23 21:41 Patient endorsed to me by Dr. Vu awaiting CT lab work results. Patient's head CT was negative and his headache is improved. His CBC showed a hemoglobin of 10.9 with previous 15.2 and January 2021. Patient refused rectal exam but states he will follow-up with a primary care provider regarding his anemia. Mild hypomagnesemia and patient declined magnesium supplementation in the ED. Plan to take tbmw-iqi-slrfuif magnesium containing supplements and follow-up with primary care about this as well. Return precautions given. Disposition Home Condition stable Impression 1 headache 2 nausea and vomiting 3 hypomagnesemia 4 anemia
== END 2023-10-13 22:03 | disposition home or self-care (01) ==
LOC: EDUNIT# → ED 18:13
DX: E83.42 Hypomagnesemia (principal); R51.9 Headache, unspecified; R11.2 Nausea with vomiting, unspecified; D64.9 Anemia, unspecified; K21.00 Gastro-esophageal reflux disease with esophagitis, without bleeding; F17.200 Nicotine dependence, unspecified, uncomplicated; Z79.899 Other long term (current) drug therapy
CPT/HCPCS: 36415; 80053; 83690; 83735; 85025; 86140; 87633; 96374; 99284